=== PATIENT | male | born 1955 | race Caucasian/White ===

== ENCOUNTER 2021-08-15 20:18 | Inpatient (IN) | payer MEDICAID, MEDICARE ==
[~2021-08-15] VITALS: Ht 177.8 cm; Wt 52.2 kg
[2021-08-15] MEDS ORDERED: CEFTRIAXONE 1GM BAG (ER ONLY) 50 ML IV ONE ×2 (21:00→21:46)
[2021-08-15] MEDS ORDERED: IV NS 0.9% 1,000 ML BAG IV ONE (21:00)
[2021-08-15 21:48] LABS: COLOR,URINE AMBER (YELLOW)
[2021-08-15 21:49] LABS: PROTEIN,URINE 2+ mg/dl (NEGATIVE)
[2021-08-15 21:50] LABS: BILIRUBIN,URINE NEGATIVE (NEGATIVE); UGLUCOSE NEGATIVE (NEGATIVE)
[2021-08-15 21:51] LABS: LEUKOCYTE ESTERASE ,URINE 3+ (NEGATIVE); NITRITE, URINE NEGATIVE (NEGATIVE)
[2021-08-15 21:52] LABS: BACTERIA,URINE 2+ /HPF (None Seen); WBC,URINE 21-50 /HPF (0-3)
[2021-08-15 21:53] LABS: SQUAMOUS EPITHELIAL CELL,UR Few /HPF (None Seen)
[2021-08-15 22:45] LABS: BASOPHILS % (AUTO) 0.2 % (0.0-2.0); EOSINOPHILS % (AUTO) 7.8 % (0.0-6.0); HEMATOCRIT 29 % (39-51); HEMOGLOBIN 9.7 g/dL (13.5-17.5); LYMPHOCYTES # (AUTO) 1.5 K/uL (0.8-4.8); LYMPHOCYTES % (AUTO) 7.2 % (20.0-44.0); MEAN CORPUSCULAR HGB CONC 34 g/dl (31.0-36.0); MEAN CORPUSCULAR VOLUME 96 fL (80-96); MONOCYTES # (AUTO) 1.1 K/uL (0.1-1.30); MONOCYTES % (AUTO) 5.5 % (2.0-12.0); NEUTROPHILS # (AUTO) 16.1 K/uL (1.8-8.9); NEUTROPHILS % (AUTO) 79.3 % (43.0-81.0); PLATELET COUNT (AUTO) 120 K/uL (150-450); RED BLOOD CELL COUNT(AUTO) 3.02 MIL/uL (4.5-6.0); WHITE BLOOD COUNT (AUTO) 20.3 K/uL (4.3-11.0)
[2021-08-15] MEDS ORDERED: ASCO500C18 GT (22:51)
[2021-08-15] MEDS ORDERED: CRAN3875 GT (22:51)
[2021-08-15] MEDS ORDERED: FLUT16SP MT (22:51)
[2021-08-15] MEDS ORDERED: DOCU100T2 GT (22:51)
[2021-08-15] MEDS ORDERED: FOLI5VIA2 GT (22:51)
[2021-08-15] MEDS ORDERED: CALC0.253 GT (22:51)
[2021-08-15] MEDS ORDERED: MULT-447 GT (22:51)
[2021-08-15] MEDS ORDERED: LEVE500T9 GT (22:51)
[2021-08-15] MEDS ORDERED: ESCI20TA GT (22:51)
[2021-08-15] MEDS ORDERED: FLUN25SP BNOSTRILS (22:51)
[2021-08-15] MEDS ORDERED: TRAZ-182 GT (22:51)
[2021-08-15] MEDS ORDERED: FERR325T23 GT (22:51)
[2021-08-15] MEDS ORDERED: AMLO-213 GT (22:51)
[2021-08-15] MEDS ORDERED: ATOR40TA GT (22:51)
[2021-08-15] MEDS ORDERED: ASPI-1169 GT (22:51)
[2021-08-15 23:04] LABS: POTASSIUM 4.5 mmol/L (3.5-5.1)
[2021-08-15 23:05] LABS: ALBUMIN 2.1 g/dL (3.4-5.0); BILIRUBIN,DIRECT 0.2 mg/dL (0.0-0.2); BILIRUBIN,TOTAL 0.3 mg/dL (0.2-1.0); CALCIUM, SERUM 9.4 mg/dL (8.5-10.1); CREATININE 1.3 mg/dL (0.6-1.3)
[2021-08-15 23:06] LABS: TOTAL PROTEIN, SERUM 7.3 g/dL (6.4-8.2)
[2021-08-16] MEDS ORDERED: HYDROCODONE/APAP 5/325MG TABLET PO PRN (00:30)
[2021-08-16] MEDS ORDERED: MAG HYDROX/AL HYDROX/SIMETH 30 ML UDC PO PRN (00:30)
[2021-08-16] MEDS ORDERED: ACETAMINOPHEN 325 MG TABLET PO PRN (00:30)
[2021-08-16] MEDS ORDERED: Z GUARD REMEDY 4 OZ OINT TP PRN (00:30)
[2021-08-16] MEDS ORDERED: MAGNESIUM HYDROXIDE 30 ML UDC PO PRN (00:30)
[2021-08-16] MEDS ORDERED: ONDANSETRON HCL/PF 4 MG/2 ML VIAL IVP PRN (00:30)
[2021-08-16 00:45] VITALS: BP 116/72
[2021-08-16] MEDS: IV NS 0.9% 1,000 ML IV PRN ×2 (00:57→14:08)
[2021-08-16] MEDS: ENOXAPARIN SODIUM 40 MG/0.4 ML DISP.SYRIN SQ SCH ×2 (01:00→21:00)
[2021-08-16 04:00] VITALS: BP 112/65
[2021-08-16 08:00] VITALS: BP 93/60
[2021-08-16] MEDS: FERROUS SULFATE (325 MG) 325 MG/TAB TABLET GT SCH (08:32)
[2021-08-16] MEDS: ESCITALOPRAM OXALATE (10 MG) 10 MG TABLET PO SCH (08:33)
[2021-08-16] MEDS: PANTOPRAZOLE 40 MG TABLET.DR PO SCH (08:34)
[2021-08-16] MEDS: LEVETIRACETAM (250 MG) 250 MG TABLET PO SCH ×2 (08:34→20:04)
[2021-08-16] MEDS: CALCITRIOL 0.25 MCG CAPSULE GT SCH (08:34)
[2021-08-16] MEDS: ASPIRIN 81 MG TAB.CHEW GT SCH (08:34)
[2021-08-16] MEDS ORDERED: CEFTRIAXONE 1 G in IV D5W 50 ML IV SCH ×2 (09:00→21:00)
[2021-08-16 10:57] LABS: BAND % (MANUAL) 9 % (0.0-5.0); LYMPHOCYTES % (MANUAL) 8 % (16-48); NEUTROPHILS % (MANUAL) 75 (42-76); REACTIVE LYMPHOCYTES 8 % (0-0)
[2021-08-16 12:00] VITALS: BP 102/57
[2021-08-16 16:00] VITALS: BP 109/59
[2021-08-16 20:00] VITALS: BP 127/58
[2021-08-16] MEDS: CEFTRIAXONE 1 G in IV D5W 50 ML IV SCH (20:04)
[2021-08-16] MEDS: ATORVASTATIN 40 MG TABLET GT SCH (21:51)
[2021-08-17] VITALS: BP 117/62
[2021-08-17] MEDS: IV NS 0.9% 1,000 ML IV PRN ×2 (03:00→18:35)
[2021-08-17 04:00] VITALS: BP 115/62
[2021-08-17 07:43] LABS: BASOPHILS # (AUTO) 0.1 K/uL (0.0-0.2); BASOPHILS % (AUTO) 0.3 % (0.0-2.0); EOSINOPHILS % (AUTO) 0.8 % (0.0-6.0); HEMATOCRIT 32 % (39-51); HEMOGLOBIN 10.7 g/dL (13.5-17.5); LYMPHOCYTES # (AUTO) 1.6 K/uL (0.8-4.8); LYMPHOCYTES % (AUTO) 8.2 % (20.0-44.0); MEAN CORPUSCULAR HGB CONC 34 g/dl (31.0-36.0); MEAN CORPUSCULAR VOLUME 96 fL (80-96); MONOCYTES # (AUTO) 1.2 K/uL (0.1-1.30); MONOCYTES % (AUTO) 6.2 % (2.0-12.0); NEUTROPHILS % (AUTO) 84.5 % (43.0-81.0); PLATELET COUNT (AUTO) 144 K/uL (150-450); RED BLOOD CELL COUNT(AUTO) 3.33 MIL/uL (4.5-6.0)
[2021-08-17 08:00] VITALS: BP 113/67
[2021-08-17] MEDS: CALCITRIOL 0.25 MCG CAPSULE GT SCH (08:05)
[2021-08-17] MEDS: PANTOPRAZOLE 40 MG TABLET.DR PO SCH (08:05)
[2021-08-17] MEDS: ASPIRIN 81 MG TAB.CHEW GT SCH (08:05)
[2021-08-17] MEDS: ESCITALOPRAM OXALATE (10 MG) 10 MG TABLET PO SCH (08:06)
[2021-08-17] MEDS: LEVETIRACETAM (250 MG) 250 MG TABLET PO SCH ×2 (08:06→21:00)
[2021-08-17] MEDS: FERROUS SULFATE (325 MG) 325 MG/TAB TABLET GT SCH (08:06)
[2021-08-17 08:27] LABS: CALCIUM, SERUM 9.3 mg/dL (8.5-10.1); CREATININE 0.7 mg/dL (0.6-1.3); MAGNESIUM 1.9 mg/dL (1.8-2.4); PHOSPHORUS 3.8 mg/dL (2.5-4.9); POTASSIUM 3.8 mmol/L (3.5-5.1)
[2021-08-17 11:30] LABS: BAND % (MANUAL) 24 % (0.0-5.0); NEUTROPHILS % (MANUAL) 55 (42-76)
[2021-08-17 11:31] LABS: EOSINOPHILS % (MANUAL) 1 % (0-4); LYMPHOCYTES % (MANUAL) 14 % (16-48); MONOCYTES % (MANUAL) 6 % (0-11.0)
[2021-08-17 12:00] VITALS: BP 118/66
[2021-08-17 16:00] VITALS: BP 128/71
[2021-08-17] MEDS: GLUCERNA NG PRN (17:50)
[2021-08-17 20:00] VITALS: BP 133/71
[2021-08-17] MEDS: ATORVASTATIN 40 MG TABLET GT SCH (21:00)
[2021-08-17] MEDS: ENOXAPARIN SODIUM 40 MG/0.4 ML DISP.SYRIN SQ SCH (21:00)
[2021-08-17] MEDS: CEFTRIAXONE 1 G in IV D5W 50 ML IV SCH (21:00)
[2021-08-18] VITALS: BP 121/69
[2021-08-18 04:00] VITALS: BP 122/66
[2021-08-18] MEDS: IV NS 0.9% 1,000 ML IV PRN (05:22)
[2021-08-18 06:32] LABS: BASOPHILS # (AUTO) 0.1 K/uL (0.0-0.2); BASOPHILS % (AUTO) 0.4 % (0.0-2.0); EOSINOPHILS % (AUTO) 0.6 % (0.0-6.0); HEMATOCRIT 34 % (39-51); HEMOGLOBIN 11.4 g/dL (13.5-17.5); LYMPHOCYTES # (AUTO) 1.8 K/uL (0.8-4.8); LYMPHOCYTES % (AUTO) 13.4 % (20.0-44.0); MEAN CORPUSCULAR HGB CONC 33 g/dl (31.0-36.0); MEAN CORPUSCULAR VOLUME 96 fL (80-96); MONOCYTES % (AUTO) 7.2 % (2.0-12.0); NEUTROPHILS # (AUTO) 10.6 K/uL (1.8-8.9); NEUTROPHILS % (AUTO) 78.4 % (43.0-81.0); PLATELET COUNT (AUTO) 151 K/uL (150-450); RED BLOOD CELL COUNT(AUTO) 3.57 MIL/uL (4.5-6.0); WHITE BLOOD COUNT (AUTO) 13.5 K/uL (4.3-11.0)
[2021-08-18 07:54] LABS: CALCIUM, SERUM 9.4 mg/dL (8.5-10.1); CREATININE 0.6 mg/dL (0.6-1.3); MAGNESIUM 1.7 mg/dL (1.8-2.4); POTASSIUM 3.6 mmol/L (3.5-5.1)
[2021-08-18 08:00] VITALS: BP 116/57
[2021-08-18] MEDS: PANTOPRAZOLE 40 MG TABLET.DR PO SCH (09:09)
[2021-08-18] MEDS: FERROUS SULFATE (325 MG) 325 MG/TAB TABLET GT SCH (09:13)
[2021-08-18] MEDS: LEVETIRACETAM (250 MG) 250 MG TABLET PO SCH ×2 (09:13→21:03)
[2021-08-18] MEDS: ASPIRIN 81 MG TAB.CHEW GT SCH (09:13)
[2021-08-18] MEDS: ESCITALOPRAM OXALATE (10 MG) 10 MG TABLET PO SCH (09:13)
[2021-08-18] MEDS: CALCITRIOL 0.25 MCG CAPSULE GT SCH (09:13)
[2021-08-18] MEDS: Magnesium 1GM/D5W 100ML PREMIX 100 ML IV SCH ×2 (12:09→13:37)
[2021-08-18 12:30] VITALS: BP 105/70
[2021-08-18] MEDS: LEVOFLOXACIN 750 MG /D5W 150ML 750 MG in PREMIX 1 EA IV SCH (13:37)
[2021-08-18 16:00] VITALS: BP 124/89
[2021-08-18 20:00] VITALS: BP 133/67
[2021-08-18] MEDS: ATORVASTATIN 40 MG TABLET GT SCH (21:03)
[2021-08-18] MEDS: ENOXAPARIN SODIUM 40 MG/0.4 ML DISP.SYRIN SQ SCH (21:05)
[2021-08-18] MEDS: GLUCERNA NG PRN (21:07)
[2021-08-19] VITALS (7 sets, daily range): BP systolic 121–129; BP diastolic 56–70
[2021-08-19] MEDS: PANTOPRAZOLE 40 MG TABLET.DR PO SCH (07:27)
[2021-08-19 07:50] LABS: BASOPHILS % (AUTO) 0.2 % (0.0-2.0); EOSINOPHILS % (AUTO) 0.4 % (0.0-6.0); HEMATOCRIT 34 % (39-51); HEMOGLOBIN 11.2 g/dL (13.5-17.5); LYMPHOCYTES % (AUTO) 16.5 % (20.0-44.0); MEAN CORPUSCULAR HGB CONC 33 g/dl (31.0-36.0); MEAN CORPUSCULAR VOLUME 95 fL (80-96); MONOCYTES # (AUTO) 0.9 K/uL (0.1-1.30); MONOCYTES % (AUTO) 7.2 % (2.0-12.0); NEUTROPHILS # (AUTO) 9.1 K/uL (1.8-8.9); NEUTROPHILS % (AUTO) 75.7 % (43.0-81.0); PLATELET COUNT (AUTO) 192 K/uL (150-450); RED BLOOD CELL COUNT(AUTO) 3.53 MIL/uL (4.5-6.0)
[2021-08-19 08:07] LABS: CALCIUM, SERUM 9.5 mg/dL (8.5-10.1); CREATININE 0.7 mg/dL (0.6-1.3); MAGNESIUM 1.8 mg/dL (1.8-2.4); POTASSIUM 3.7 mmol/L (3.5-5.1)
[2021-08-19] MEDS: FERROUS SULFATE (325 MG) 325 MG/TAB TABLET GT SCH (08:20)
[2021-08-19] MEDS: ASPIRIN 81 MG TAB.CHEW GT SCH (08:21)
[2021-08-19] MEDS: CALCITRIOL 0.25 MCG CAPSULE GT SCH (08:21)
[2021-08-19] MEDS: LEVETIRACETAM (250 MG) 250 MG TABLET PO SCH ×2 (08:21→21:20)
[2021-08-19] MEDS: ESCITALOPRAM OXALATE (10 MG) 10 MG TABLET PO SCH (08:21)
[2021-08-19] MEDS: LEVOFLOXACIN 750 MG /D5W 150ML 750 MG in PREMIX 1 EA IV SCH (12:10)
[2021-08-19 15:06] LABS: BAND % (MANUAL) 2 % (0.0-5.0); LYMPHOCYTES % (MANUAL) 21 % (16-48); MONOCYTES % (MANUAL) 7 % (0-11.0); NEUTROPHILS % (MANUAL) 70 (42-76)
[2021-08-19] MEDS: ENOXAPARIN SODIUM 40 MG/0.4 ML DISP.SYRIN SQ SCH (21:20)
[2021-08-19] MEDS: ATORVASTATIN 40 MG TABLET GT SCH (21:20)
[2021-08-20] VITALS: BP 131/56
[2021-08-20] MEDS: GLUCERNA NG PRN (02:32)
[2021-08-20 04:00] VITALS: BP 113/59
[2021-08-20 07:29] LABS: BASOPHILS % (AUTO) 0.3 % (0.0-2.0); EOSINOPHILS % (AUTO) 0.7 % (0.0-6.0); HEMATOCRIT 32 % (39-51); HEMOGLOBIN 10.9 g/dL (13.5-17.5); LYMPHOCYTES # (AUTO) 2.6 K/uL (0.8-4.8); MEAN CORPUSCULAR HGB CONC 34 g/dl (31.0-36.0); MEAN CORPUSCULAR VOLUME 96 fL (80-96); MONOCYTES # (AUTO) 0.9 K/uL (0.1-1.30); MONOCYTES % (AUTO) 8.7 % (2.0-12.0); NEUTROPHILS # (AUTO) 6.2 K/uL (1.8-8.9); NEUTROPHILS % (AUTO) 63.3 % (43.0-81.0); PLATELET COUNT (AUTO) 209 K/uL (150-450); RED BLOOD CELL COUNT(AUTO) 3.35 MIL/uL (4.5-6.0); WHITE BLOOD COUNT (AUTO) 9.8 K/uL (4.3-11.0)
[2021-08-20 07:41] LABS: CALCIUM, SERUM 8.9 mg/dL (8.5-10.1); CREATININE 0.6 mg/dL (0.6-1.3); MAGNESIUM 1.7 mg/dL (1.8-2.4); POTASSIUM 4.1 mmol/L (3.5-5.1)
[2021-08-20 08:00] VITALS: BP 115/65
[2021-08-20] MEDS: LEVETIRACETAM (250 MG) 250 MG TABLET PO SCH (08:04)
[2021-08-20] MEDS: ASPIRIN 81 MG TAB.CHEW GT SCH (08:04)
[2021-08-20] MEDS: FERROUS SULFATE (325 MG) 325 MG/TAB TABLET GT SCH (08:04)
[2021-08-20] MEDS: ESCITALOPRAM OXALATE (10 MG) 10 MG TABLET PO SCH (08:04)
[2021-08-20] MEDS: PANTOPRAZOLE 40 MG TABLET.DR PO SCH (08:04)
[2021-08-20] MEDS: CALCITRIOL 0.25 MCG CAPSULE GT SCH (08:04)
[2021-08-20] MEDS ORDERED: ASPIRIN 81 MG TAB.CHEW NG SCH (10:31)
[2021-08-20] MEDS ORDERED: MAGNESIUM HYDROXIDE 30 ML UDC NG PRN (10:33)
[2021-08-20] MEDS ORDERED: MAG HYDROX/AL HYDROX/SIMETH 30 ML UDC NG PRN (10:33)
[2021-08-20] MEDS ORDERED: HYDROCODONE/APAP 5/325MG TABLET NG PRN (10:34)
[2021-08-20] MEDS ORDERED: CALCITRIOL 0.25 MCG CAPSULE NG SCH (10:34)
[2021-08-20] MEDS ORDERED: ACETAMINOPHEN 650 MG/20.3 ML UDC NG PRN ×2 (11:00)
[2021-08-20 12:00] VITALS: BP 103/54
[2021-08-20] MEDS: LEVOFLOXACIN 750 MG /D5W 150ML 750 MG in PREMIX 1 EA IV SCH (12:14)
[2021-08-20] MEDS: LEVOFLOXACIN (250MG) 250 MG TABLET NG SCH (13:00)
[2021-08-20 16:00] VITALS: BP 111/62
[2021-08-20] MEDS: Magnesium 1GM/D5W 100ML PREMIX 100 ML IV SCH ×2 (16:13→16:58)
[2021-08-20 20:00] VITALS: BP 122/71
[2021-08-20] MEDS: ENOXAPARIN SODIUM 40 MG/0.4 ML DISP.SYRIN SQ SCH (21:49)
[2021-08-20] MEDS: LEVETIRACETAM SOL (5 ML) 100 MG/ML UDC NG SCH (22:03)
[2021-08-20] MEDS: ATORVASTATIN 40 MG TABLET NG SCH (22:04)
[2021-08-21] VITALS: BP 111/56
[2021-08-21] MEDS: GLUCERNA NG PRN (02:13)
[2021-08-21 04:00] VITALS: BP 128/76
[2021-08-21 08:00] VITALS: BP 101/56
[2021-08-21] MEDS: CALCITRIOL 0.25 MCG CAPSULE NG SCH (08:09)
[2021-08-21] MEDS: FERROUS SULFATE (325 MG) 325 MG/TAB TABLET NG SCH (08:10)
[2021-08-21] MEDS: ASPIRIN 81 MG TAB.CHEW NG SCH (08:13)
[2021-08-21] MEDS: LEVETIRACETAM SOL (5 ML) 100 MG/ML UDC NG SCH ×2 (08:13→21:32)
[2021-08-21] MEDS: PANTOPRAZOLE 40 MG/PACK PACK NG SCH (08:13)
[2021-08-21] MEDS: ESCITALOPRAM OXALATE (10 MG) 10 MG TABLET NG SCH (08:14)
[2021-08-21 12:00] VITALS: BP 93/46
[2021-08-21] MEDS: LEVOFLOXACIN (250MG) 250 MG TABLET NG SCH (12:41)
[2021-08-21 12:54] LABS: BASOPHILS % (AUTO) 0.4 % (0.0-2.0); EOSINOPHILS % (AUTO) 0.8 % (0.0-6.0); HEMATOCRIT 31 % (39-51); HEMOGLOBIN 10.5 g/dL (13.5-17.5); LYMPHOCYTES # (AUTO) 1.9 K/uL (0.8-4.8); MEAN CORPUSCULAR HGB CONC 34 g/dl (31.0-36.0); MEAN CORPUSCULAR VOLUME 96 fL (80-96); MONOCYTES # (AUTO) 0.6 K/uL (0.1-1.30); MONOCYTES % (AUTO) 8.4 % (2.0-12.0); NEUTROPHILS # (AUTO) 5.1 K/uL (1.8-8.9); NEUTROPHILS % (AUTO) 65.4 % (43.0-81.0); PLATELET COUNT (AUTO) 234 K/uL (150-450); RED BLOOD CELL COUNT(AUTO) 3.25 MIL/uL (4.5-6.0); WHITE BLOOD COUNT (AUTO) 7.8 K/uL (4.3-11.0)
[2021-08-21 13:14] LABS: CALCIUM, SERUM 8.9 mg/dL (8.5-10.1); CREATININE 0.6 mg/dL (0.6-1.3); MAGNESIUM 1.9 mg/dL (1.8-2.4); PHOSPHORUS 3.5 mg/dL (2.5-4.9); POTASSIUM 4.5 mmol/L (3.5-5.1)
[2021-08-21 16:00] VITALS: BP 139/75
[2021-08-21 20:00] VITALS: BP 153/87
[2021-08-21] MEDS: ENOXAPARIN SODIUM 40 MG/0.4 ML DISP.SYRIN SQ SCH (21:31)
[2021-08-21] MEDS: ATORVASTATIN 40 MG TABLET NG SCH (21:32)
[2021-08-22] VITALS: BP 141/68
[2021-08-22] MEDS: GLUCERNA NG PRN (02:11)
[2021-08-22 04:00] VITALS: BP 130/58
[2021-08-22 08:00] VITALS: BP 112/63
[2021-08-22] MEDS: PANTOPRAZOLE 40 MG/PACK PACK NG SCH (09:16)
[2021-08-22] MEDS: ASPIRIN 81 MG TAB.CHEW NG SCH (09:16)
[2021-08-22] MEDS: FERROUS SULFATE (325 MG) 325 MG/TAB TABLET NG SCH (09:17)
[2021-08-22] MEDS: LEVETIRACETAM SOL (5 ML) 100 MG/ML UDC NG SCH (09:17)
[2021-08-22] MEDS: CALCITRIOL 0.25 MCG CAPSULE NG SCH (09:18)
[2021-08-22] MEDS: ESCITALOPRAM OXALATE (10 MG) 10 MG TABLET NG SCH (09:18)
[2021-08-22 12:00] VITALS: BP 114/59
[2021-08-22] MEDS ORDERED: LEVO750T46 GT (12:16)
[2021-08-22] MEDS: LEVOFLOXACIN (250MG) 250 MG TABLET NG SCH (13:06)
== END 2021-08-22 18:37 | DRG 720 ==
LOC: EDBD 20:25 → ER 20:25 → TELE1 08-16 00:07
PROVIDERS: ADMIT Nurse Practitioner Family; ATTEND Nurse Practitioner Acute Care
PROC: 05H533Z Insertion of Infusion Device into Right Subclavian Vein, Percutaneous Approach (ICD-10-PCS; principal; 2021-08-21)
PROC: B546ZZA Ultrasonography of Right Subclavian Vein, Guidance (ICD-10-PCS; 2021-08-21)
DX: A41.59 Other Gram-negative sepsis (principal); N17.0 Acute kidney failure with tubular necrosis; G93.41 Metabolic encephalopathy; G82.50 Quadriplegia, unspecified; J15.0 Pneumonia due to Klebsiella pneumoniae; E44.0 Moderate protein-calorie malnutrition; D68.59 Other primary thrombophilia; E87.3 Alkalosis; E87.1 Hypo-osmolality and hyponatremia; E88.09 Other disorders of plasma-protein metabolism, not elsewhere classified; E11.9 Type 2 diabetes mellitus without complications; D64.9 Anemia, unspecified; E78.5 Hyperlipidemia, unspecified; N39.0 Urinary tract infection, site not specified; B96.1 Klebsiella pneumoniae [K. pneumoniae] as the cause of diseases classified elsewhere; F03.90 Unspecified dementia, unspecified severity, without behavioral disturbance, psychotic disturbance, mood disturbance, and anxiety; E86.0 Dehydration; I10 Essential (primary) hypertension; G40.909 Epilepsy, unspecified, not intractable, without status epilepticus; E86.1 Hypovolemia; F32.A Depression, unspecified; R13.10 Dysphagia, unspecified; Z87.820 Personal history of traumatic brain injury; Z93.1 Gastrostomy status; Z20.822 Contact with and (suspected) exposure to COVID-19; Z16.12 Extended spectrum beta lactamase (ESBL) resistance; B96.5 Pseudomonas (aeruginosa) (mallei) (pseudomallei) as the cause of diseases classified elsewhere; Z68.1 Body mass index [BMI] 19.9 or less, adult; Z74.09 Other reduced mobility; F20.9 Schizophrenia, unspecified
CPT/HCPCS: 36415; 71045-TC; 80048-TC; 80076-TC; 81001; 83605-TC; 83735-TC; 84100-TC; 85025-TC; 87040-TC; 87086-TC; 87186-TC; A4216; A4217; A6403; C9803; G0378; J0696; J1650; J1953; J1956; J3475; J7030; J7050; J7060; U0003

== ENCOUNTER 2022-02-20 10:50 | Emergency (ER) | payer MEDICARE, OTHER ==
[~2022-02-20] VITALS: Ht 165.1 cm; Wt 59.4 kg
[~2022-02-20 10:50] MED LIST: AMLO-213 GT; ASCO500C18 GT; ASPI-1169 GT; ATOR40TA GT; CALC0.253 GT; CRAN3875 GT; DOCU100T2 GT; ESCI20TA GT; FERR325T23 GT; FLUN25SP; FLUT16SP MT; FOLI5VIA2 GT; LEVE500T9 GT; LEVO750T46 GT; MULT-447 GT; TRAZ-182 GT
--- NOTE | 2022-02-20 10:50 | NUR ---
ILAN PATEL FROM CARE FACILITY FOR COUGH/CHEST CONGESTION. PLACED ON BED, RESPONDING TO VERBAL STIMULI BY OPENING EYES- SLURED SPEECH, BREATHING EVEN AND UNLABORED SATURATING AT 97%RA.
--- NOTE | 2022-02-20 11:00 | NUR ---
AT BED SIDE
--- NOTE | 2022-02-20 11:10 | NUR ---
SWAB FOR COVID19 SENT TO LAB
[2022-02-20] MEDS ORDERED: MODAFINIL GT (11:13)
[2022-02-20] MEDS ORDERED: FLUT12AE5 IH (11:13)
[2022-02-20] MEDS ORDERED: NUT.237L30 GT (11:13)
[2022-02-20] MEDS ORDERED: FOLI0.4T6 GT (11:13)
--- NOTE | 2022-02-20 11:18 | NUR ---
JAVA SOFTWARE ARCHITECT AT BED SIDE
[2022-02-20 11:41] LABS: BASOPHILS % (AUTO) 0.3 % (0.0-2.0); EOSINOPHILS % (AUTO) 0.3 % (0.0-6.0); HEMATOCRIT 38 % (39-51); HEMOGLOBIN 12.8 g/dL (13.5-17.5); LYMPHOCYTES # (AUTO) 1.3 K/uL (0.8-4.8); LYMPHOCYTES % (AUTO) 29.5 % (20.0-44.0); MEAN CORPUSCULAR HGB CONC 34 g/dl (31.0-36.0); MEAN CORPUSCULAR VOLUME 94 fL (80-96); MONOCYTES # (AUTO) 0.5 K/uL (0.1-1.30); NEUTROPHILS # (AUTO) 2.6 K/uL (1.8-8.9); NEUTROPHILS % (AUTO) 58.9 % (43.0-81.0); PLATELET COUNT (AUTO) 154 K/uL (150-450); RED BLOOD CELL COUNT(AUTO) 4.06 MIL/uL (4.5-6.0); WHITE BLOOD COUNT (AUTO) 4.4 K/uL (4.3-11.0)
[2022-02-20 11:52] LABS: CALCIUM, SERUM 8.8 mg/dL (8.5-10.1); CREATININE 0.9 mg/dL (0.6-1.3); POTASSIUM 3.9 mmol/L (3.5-5.1)
[2022-02-20] MEDS ORDERED: GUAI1TBM19 PO (12:10)
--- NOTE | 2022-02-20 12:29 | NUR ---
Suzanna caldwell in [facility] - 02/20/22 at 1230 by PRASHANTH X-RAY TECH AT [facility] SIDE
--- NOTE | 2022-02-20 12:49 | NUR ---
COVID POSITIVE RESULT RELAYED BY ELECTRONIC PUBLISHER, RAGHAV ERVIN AWARE
--- NOTE | 2022-02-20 12:59 | NUR ---
CALLED [facility] [phone] [facility] WILL CALL US BACK TO INFORM IF THEY CAN TAKE PATIENT BACK.
--- NOTE | 2022-02-20 13:12 | NUR ---
ANGEL LUIS FROM [facility] [phone] CALLED NO ISOLATION BEDS AT THIS TIME. [facility] WILL CALL US BACK TO INFORM IF THEY CAN TAKE PATIENT BACK.
--- NOTE | 2022-02-20 13:49 | NUR ---
[facility] CALLED COIN MACHINE COLLECTOR SUPERVISOR PAGED.
--- NOTE | 2022-02-20 14:11 | NUR ---
[facility] CALLED BACK THEY ARE ABLE TO GET PATIENT.
--- NOTE | 2022-02-20 14:14 | NUR ---
[facility] CALLED FOR TRANSPORT ETA 60 MINS PER JUANCARLOS.
--- NOTE | 2022-02-20 14:39 | NUR ---
REPORT GIVEN TO LONI- STENOTYPE MACHINE OPERATOR AT [facility] [phone]
--- NOTE | 2022-02-20 15:43 | NUR ---
PICKED UP BY [facility] UNIT [address] IN STABLE CONDITION. ALL BELONGINGS BROUGHT WITH PATIENT.
[2022-02-20 18:17] VITALS: BP 120/60
== END 2022-02-20 15:43 ==
LOC: ER 10:52
DX: U07.1 COVID-19 (principal); F03.90 Unspecified dementia, unspecified severity, without behavioral disturbance, psychotic disturbance, mood disturbance, and anxiety; G82.50 Quadriplegia, unspecified; S06.9X0S Unspecified intracranial injury without loss of consciousness, sequela; X58.XXXS Exposure to other specified factors, sequela; I10 Essential (primary) hypertension; E11.9 Type 2 diabetes mellitus without complications; R13.10 Dysphagia, unspecified; Z93.1 Gastrostomy status; Z79.82 Long term (current) use of aspirin; Z79.899 Other long term (current) drug therapy; J06.9 Acute upper respiratory infection, unspecified
CPT/HCPCS: 36415; 71045-TC; 80048-TC; 85025-TC; C9803

== ENCOUNTER 2022-11-02 13:23 | Inpatient (IN) | payer MEDICARE, MEDICAID ==
[~2022-11-02] VITALS: Ht 162.6 cm; Wt 66.7 kg
[~2022-11-02 13:23] MED LIST changes: +FLUT12AE5 IH; -FLUT16SP MT; +FOLI0.4T6 GT; -FOLI5VIA2 GT; +GUAI1TBM19 PO; -LEVO750T46 GT; +MODAFINIL GT; +NUT.237L30 GT
--- NOTE | 2022-11-02 13:39 | NUR ---
Patient AOx3, able to express his concerns. Hard of hearing, patient stares he walks without the need of a walker. States he does not know happend with G-TUbe. WIll continue to monitor without shift and provide care as needed. Explained plan of care, all safety precautions taken.
[2022-11-02] MEDS ORDERED: INSU100V3 SQ (14:31)
[2022-11-02] MEDS ORDERED: SODI1TAB66 GT (14:31)
[2022-11-02] MEDS ORDERED: BISA10SU11 RC (14:31)
[2022-11-02] MEDS ORDERED: ACET-2605 GT (14:31)
[2022-11-02] MEDS ORDERED: ACET-868 PO (14:31)
[2022-11-02] MEDS ORDERED: NA P133E RC (14:31)
[2022-11-02] MEDS ORDERED: MAGN400O6 GT (14:31)
[2022-11-02 14:59] LABS: BASOPHILS % (AUTO) 0.6 % (0.0-2.0); EOSINOPHILS % (AUTO) 1.3 % (0.0-6.0); HEMATOCRIT 42 % (39-51); HEMOGLOBIN 14.1 g/dL (13.5-17.5); LYMPHOCYTES # (AUTO) 2.5 K/uL (0.8-4.8); LYMPHOCYTES % (AUTO) 34.7 % (20.0-44.0); MEAN CORPUSCULAR HGB CONC 34 g/dl (31.0-36.0); MEAN CORPUSCULAR VOLUME 95 fL (80-96); MONOCYTES # (AUTO) 0.5 K/uL (0.1-1.30); MONOCYTES % (AUTO) 7.4 % (2.0-12.0); PLATELET COUNT (AUTO) 223 K/uL (150-450); RED BLOOD CELL COUNT(AUTO) 4.44 MIL/uL (4.5-6.0); WHITE BLOOD COUNT (AUTO) 7.1 K/uL (4.3-11.0)
--- NOTE | 2022-11-02 15:05 | NUR ---
COVID SWAB collected
--- NOTE | 2022-11-02 15:08 | NUR ---
MRSA collected, sent to lab
[2022-11-02 15:10] LABS: CALCIUM, SERUM 9.4 mg/dL (8.5-10.1); CREATININE 0.9 mg/dL (0.6-1.3); POTASSIUM 3.8 mmol/L (3.5-5.1)
[2022-11-02 15:17] LABS: ALBUMIN 2.6 g/dL (3.4-5.0); BILIRUBIN,DIRECT 0.1 mg/dL (0.0-0.2); BILIRUBIN,TOTAL 0.3 mg/dL (0.2-1.0); TOTAL PROTEIN, SERUM 7.7 g/dL (6.4-8.2)
--- NOTE | 2022-11-02 15:28 | NUR ---
Made patient aware of plan of care, berbalized agreement.
--- NOTE | 2022-11-02 16:53 | NUR ---
NOTIFIED NURSING SUP FOR MED SURG BED
--- NOTE | 2022-11-02 17:25 | NUR ---
Report givent to SILVER Lacy, patient made aware of plan and verbalized agreeement.
--- NOTE | 2022-11-02 17:28 | NUR ---
Report given to Bambi SHEPPARD, patient cleared to go to room 325
[2022-11-02] MEDS ORDERED: ACETAMINOPHEN 650 MG/SUPP.RECT RC PRN (17:30)
[2022-11-02] MEDS ORDERED: Z GUARD REMEDY 4 OZ OINT TP PRN (17:30)
[2022-11-02] MEDS ORDERED: LORAZEPAM INJ 2 MG/ML VIAL IV PRN (17:30)
--- NOTE | 2022-11-02 17:47 | NUR ---
Per Jorge- Nursing Sup. order is placed for midline, patient cleared to move up.
--- NOTE | 2022-11-02 18:00 | NUR ---
ADMITTING RN NOTES: ADMITTED A 67YO MALE PATIENT FROM EMERGENCY ROOM. RECEIVED REPORT FROM SILVER SHABAZZ. PT A/O X2-3 WITH FORGETFULNESS. NO SOB OR CARDIAC DISTRESS NOTED. PT ON ROOM AIR AND TOLERATING WELL. NO IV ACCESS WAITING FOR MIDLINE INSERTION. BODY ASSESSMENT: NOTED WITH CLOSED PEG TUBE STOMA SITE, BLE DRY SCABS MAINTAINED NPO FOR PEG INSERTION. UNABLE TO GATHER DATA AND INFORMATION FROM THE PATIENT. [facility] BUT PER [facility]ESHA VACCINATIONS AND HX AND CHART IS UNABLE TO ACCESS. CALLED [facility] GOT FEW INFORMATION, GOT CONSENT FOR G TUBE REPLACEMENT. SAFETY MEASURES INITIATED: BED LOCKED AND IN LOWEST POSITION, SIDE RAILS UP X3. PADDED SIDE RAILS PER SEIZURE PRECAUTION. CALL LIGHT IN EASY REACH FOR HELP.
--- NOTE | 2022-11-02 19:00 | NUR ---
RN NOTES: INSERTED MIDLINE GAUGE 20 PATENT AND INTACT AND FLUSHING WELL.
[2022-11-02] MEDS: LEVETIRACETAM (500MG) 1,000 MG in IV NS 0.9% 100 ML IV SCH (19:20)
--- NOTE | 2022-11-02 19:40 | NUR ---
MS RN OPENING NOTE RECEIVED PT IN BED, SLEEPING, BUT EASY TO AROUSE. PT ALERT AND ORIENTED X 2-3, ABLE TO MAKE NEEDS KNOWN. NO SOB OR CARDIAC DISTRESS NOTED. ON ROOM AIR, AND TOLERATING RA WELL. IV ACCESS MIDLINE TO RIGHT UA GAUGE 20, PATENT, INTACT AND RUNNING NS AT 75ML/HR. SAFETY MEASURES MAINTAINED: BED LOCKED AND IN LOWEST POSITION, SIDE RAILS UP X 2 CALL LIGHT WITHIN REACH. WILL MONITOR PT ACCORDINGLY.
[2022-11-02 20:00] VITALS: BP 135/73
[2022-11-02] MEDS: HEPARIN SODIUM, PORCINE 5000 UNITS/1 ML VIAL SQ SCH (21:28)
[2022-11-02] MEDS: IV D5/0.45 NACL 1,000 ML IV PRN (21:55)
--- NOTE | 2022-11-03 05:05 | NUR ---
RESOURCE MANAGEMENT PLANNER ADMITTING NOTE ADMITTED A 76YO FEMALE PATIENT FROM EMERGENCY ROOM. RECEIVED REPORT FROM SILVER DIGGS. PT A/O X4. SOB NOTED WITH EXERTION. PT ON O2 2LPM VIA NC, AND TOLERATING WELL. IV ACCESS TO LEFT FA #20G, IV INTACT, AND PATENT. PT REFUSES BODY ASSESSMENT. PT HAS HOME MEDS IN A BAG. BUT SHE REFUSES FOR THE BAG TO BE VERIFIED, AND FOR MEDS TO BE TAKEN TO PHARMACY. PT STATES HER BOYFRIEND WILL TAKE THE MEDS HOME THIS MORNING. BELONGINGS CHECKED, AND BELONGING LIST SIGNED. SAFETY MEASURES INITIATED: BED LOCKED AND IN LOWEST POSITION, SIDE RAILS UP X2, HOB ELEVATED. CALL LIGHT IN EASY REACH FOR HELP. WILL ENDORSE PT TO AM SHIFT NURSE FOR YVES. Addendum: 11/03/22 at 0748 by DAVID RIVAS RN WRONG ENTRY. PLEASE DISREGARD NOTE.
[2022-11-03] MEDS: LEVETIRACETAM (500MG) 1,000 MG in IV NS 0.9% 100 ML IV SCH ×2 (05:17→18:09)
--- NOTE | 2022-11-03 06:50 | NUR ---
MS RN OPENING NOTE LEFT PT IN BED, SLEEPING, BUT EASY TO AROUSE. PT ALERT AND ORIENTED X 2-3, ABLE TO MAKE NEEDS KNOWN. NO SOB OR CARDIAC DISTRESS NOTED. ON ROOM AIR, AND TOLERATING RA WELL. IV ACCESS MIDLINE TO RIGHT UA GAUGE 20, PATENT, INTACT AND RUNNING NS AT 75ML/HR. SAFETY MEASURES MAINTAINED: BED LOCKED AND IN LOWEST POSITION, SIDE RAILS UP X 2 CALL LIGHT WITHIN REACH. WILL ENDORSE PT TO AM SHIFT NURSE FOR YVES.
--- NOTE | 2022-11-03 07:19 | NUR ---
MS RN OPENING NOTES RECEIVED PATIENT SLEEPING IN BED, A/Ox2. ON ROOM AIR NO S/S OF RESPIRATORY DISTRESS. IV ACCESS KANDACE MIDLINE RUNNING D5 1/2 NS @75 ML/HR. INTACT AND PATENT. INCONTINENT USES DIAPER. SKIN ISSUES: G-TUBE STOMA CLOSED, BLE SCABS. SAFETY MEASURES IN PLACE: BED LOCKED AND IN LOWEST POSITION, HOB ELEVATED, CALL LIGHT WITHIN REACH, SIDE RAILS UPx3. WILL CONTINUE TO MONITOR.
[2022-11-03 08:19] VITALS: BP 119/45
[2022-11-03] MEDS: PANTOPRAZOLE 40 MG VIAL IV SCH (09:10)
[2022-11-03] MEDS: HEPARIN SODIUM, PORCINE 5000 UNITS/1 ML VIAL SQ SCH ×2 (09:21→21:40)
[2022-11-03 09:56] LABS: BASOPHILS % (AUTO) 0.7 % (0.0-2.0); HEMATOCRIT 44 % (39-51); HEMOGLOBIN 14.3 g/dL (13.5-17.5); LYMPHOCYTES # (AUTO) 3.4 K/uL (0.8-4.8); LYMPHOCYTES % (AUTO) 49.6 % (20.0-44.0); MEAN CORPUSCULAR HGB CONC 33 g/dl (31.0-36.0); MEAN CORPUSCULAR VOLUME 98 fL (80-96); MONOCYTES # (AUTO) 0.5 K/uL (0.1-1.30); MONOCYTES % (AUTO) 7.7 % (2.0-12.0); NEUTROPHILS # (AUTO) 2.8 K/uL (1.8-8.9); PLATELET COUNT (AUTO) 210 K/uL (150-450); RED BLOOD CELL COUNT(AUTO) 4.48 MIL/uL (4.5-6.0); WHITE BLOOD COUNT (AUTO) 6.9 K/uL (4.3-11.0)
[2022-11-03 10:11] LABS: CALCIUM, SERUM 9.1 mg/dL (8.5-10.1); MAGNESIUM 2.1 mg/dL (1.8-2.4); PHOSPHORUS 3.1 mg/dL (2.5-4.9); POTASSIUM 3.9 mmol/L (3.5-5.1)
[2022-11-03] MEDS: IV D5/0.45 NACL 1,000 ML IV PRN (11:28)
[2022-11-03] MEDS ORDERED: DEXTROSE 50%-WATER 50 ML DISP.SYRIN IV PRN (14:30)
[2022-11-03] MEDS ORDERED: BISACODYL SUPP (10 MG) 10 MG/SUPP.RECT SUPP.RECT RC PRN (15:30)
[2022-11-03 15:39] VITALS: BP 126/66
[2022-11-03] MEDS: BLOOD SUGAR DIAGNOSTIC 1 EACH STRIP IN SCH (17:18)
--- NOTE | 2022-11-03 18:44 | NUR ---
MS RN CLOSING NOTES PATIENT SLEEPING IN BED, A/Ox2. STABLE ON ROOM AIR NO S/S OF RESPIRATORY DISTRESS. IV ACCESS KANDACE MIDLINE RUNNING D5 1/2 NS @75 ML/HR. INTACT AND PATENT. INCONTINENT USES DIAPER. SKIN ISSUES: G-TUBE STOMA CLOSED, BLE SCABS. SAFETY MEASURES MAINTAINED: BED LOCKED AND IN LOWEST POSITION, HOB ELEVATED, CALL LIGHT WITHIN REACH, SIDE RAILS UPx3. WILL ENDORSE TO NEXT SHIFT ANY YVES.
--- NOTE | 2022-11-03 19:00 | NUR ---
MS RN OPENING NOTES PATIENT IS SLEEPING IN BED, EASILY BEING AROUSED. HE IS ALERT AND ORIENTED, A/Ox2. PT IS ON ROOM AIR, TOLERATED WELL. NO S/S OF DISTRESS OR SOB. IV ACCESS IS AT HIS R UA, MIDLINE, #18G, INFUSING D5 1/2 NS @75 ML/HR. IV SITE IS INTACT AND PATENT. PT IS ON NPO DUE TO G-TUBE REPLACEMENT IS PENDING. G-TUBE STOMA IS CLOSED, AND THE SKIN IS DRY. NO DRAINAGE; OPEN TO AIR. NO S/S OF INFECTION AT THE STOMA SITE. SAFETY MEASURES ARE IN PLACED: BED IS LOCKED AND IN LOWEST POSITION, HOB ELEVATED, CALL LIGHT WITHIN REACH, SIDE RAILS UP X 2; BED ALARM IS SET. WILL CONTINUE MONITORING THE PT AND PROVIDE THE CARE PT NEEDS.
[2022-11-03 20:00] VITALS: BP 108/59
[2022-11-04] MEDS: BLOOD SUGAR DIAGNOSTIC 1 EACH STRIP IN SCH ×4 (00:24→17:42)
[2022-11-04] MEDS: IV D5/0.45 NACL 1,000 ML IV PRN (00:28)
[2022-11-04] MEDS: LEVETIRACETAM (500MG) 1,000 MG in IV NS 0.9% 100 ML IV SCH ×2 (04:37→20:27)
[2022-11-04 06:22] LABS: EOSINOPHILS % (AUTO) 1.6 % (0.0-6.0); HEMATOCRIT 40 % (39-51); LYMPHOCYTES # (AUTO) 2.9 K/uL (0.8-4.8); LYMPHOCYTES % (AUTO) 57.6 % (20.0-44.0); MEAN CORPUSCULAR HGB CONC 33 g/dl (31.0-36.0); MEAN CORPUSCULAR VOLUME 96 fL (80-96); MONOCYTES # (AUTO) 0.4 K/uL (0.1-1.30); MONOCYTES % (AUTO) 7.5 % (2.0-12.0); NEUTROPHILS # (AUTO) 1.6 K/uL (1.8-8.9); NEUTROPHILS % (AUTO) 32.3 % (43.0-81.0); PLATELET COUNT (AUTO) 199 K/uL (150-450)
--- NOTE | 2022-11-04 06:49 | NUR ---
MS RN CLOSING NOTES PATIENT IS SLEEPING IN BED, EASILY BEING AROUSED. HE IS ALERT AND ORIENTED, A/Ox2. PT IS ON ROOM AIR, TOLERATED WELL. NO S/S OF DISTRESS OR SOB. IV ACCESS IS AT HIS R UA, MIDLINE, #18G, INFUSING D5 1/2 NS @75 ML/HR. IV SITE IS INTACT AND PATENT. PT IS ON NPO DUE TO G-TUBE REPLACEMENT IS PENDING. G-TUBE STOMA IS CLOSED, AND THE SKIN IS DRY. NO DRAINAGE; OPEN TO AIR. NO S/S OF INFECTION AT THE STOMA SITE. WOUND PICTURE WAS TAKEN AND PUT IN PT'S CHART. SAFETY MEASURES ARE IN PLACED: BED IS LOCKED AND IN LOWEST POSITION, HOB ELEVATED, CALL LIGHT WITHIN REACH, SIDE RAILS UP X 2; BED ALARM IS SET. WILL ENDORSE NEXT SHIFT NURSE FOR CONTINUING PT CARE.
[2022-11-04 07:00] VITALS: BP 129/65
[2022-11-04 07:05] LABS: CALCIUM, SERUM 8.6 mg/dL (8.5-10.1); MAGNESIUM 1.8 mg/dL (1.8-2.4); PHOSPHORUS 2.8 mg/dL (2.5-4.9); POTASSIUM 3.4 mmol/L (3.5-5.1)
--- NOTE | 2022-11-04 07:30 | NUR ---
RN OPENING NOTE- PATIENT SLEEPING EASILY AWAKENED, HE IS A/Ox2. PT IS ON ROOM AIR, NO S/S OF DISTRESS OR SOB. IV ACCESS IS AT HIS R UA, MIDLINE, #18G, INFUSING D5 1/2 NS @75 ML/HR. IV SITE IS INTACT AND PATENT. PT IS ON NPO DUE TO G-TUBE REPLACEMENT /PENDING. G-TUBE STOMA IS CLOSED, AND THE SKIN IS DRY. NO DRAINAGE; OPEN TO AIR. NO S/S OF INFECTION AT THE STOMA SITE. SAFETY MEASURES ARE IN PLACED: BED IS LOCKED AND IN LOWEST POSITION, HOB ELEVATED, CALL LIGHT WITHIN REACH, SIDE RAILS UP X 2; BED ALARM IS SET. WILL MONITOR / ASSIST
--- NOTE | 2022-11-04 07:31 | NUR ---
RN NOTE- SEIZURE HX NOTED. PADDED SIDERAILS APPLIED AT THIS TIME. MONITOR FOR SZ ACTIVITY
[2022-11-04] MEDS: HEPARIN SODIUM, PORCINE 5000 UNITS/1 ML VIAL SQ SCH ×2 (09:12→21:00)
[2022-11-04] MEDS: PANTOPRAZOLE 40 MG VIAL IV SCH (09:18)
[2022-11-04] MEDS: INSULIN REGULAR, HUMAN 100 UNIT/ML 3 ML VIAL SQ PRN ×2 (11:45→17:43)
[2022-11-04 16:27] VITALS: BP 115/56
--- NOTE | 2022-11-04 18:42 | NUR ---
RN CLOSING NOTE- PATIENT UNCHANGED, HE IS A/Ox2. PT IS ON ROOM AIR, NO S/S OF DISTRESS OR SOB. IV ACCESS IS AT HIS R UA, MIDLINE, #18G, INFUSING D5 1/2 NS @75 ML/HR. IV SITE IS INTACT AND PATENT. PT IS ON NPO DUE TO G-TUBE REPLACEMENT /PENDING. G-TUBE STOMA IS CLOSED, AND THE SKIN IS DRY. NO DRAINAGE; OPEN TO AIR. NO S/S OF INFECTION AT THE STOMA SITE. FOR PEG PLACEMENT IN MORNING. SAFETY MEASURES ARE IN PLACED: BED IS LOCKED AND IN LOWEST POSITION, HOB ELEVATED, CALL LIGHT WITHIN REACH, SIDE RAILS UP X 2; BED ALARM IS SET. WILL MONITOR / ASSIST
--- NOTE | 2022-11-04 19:29 | NUR ---
RN OPENING NOTE PATIENT AWAKE IN BED. A/OX2. NO S/S OF DISTRESS, BREATHING WITHOUT DIFFICULTY ON ROOM AIR. KANDACE MIDLINE #18 INTACT AND PATENT W/ D5-1/2NS 75ML/HR. SAFETY MEASURES IN PLACE: BED LOCKED AND AT LOWEST POSITION, RAILS UP X2, CALL TORRES WITHIN REACH. WILL CONTINUE TO MONITOR PATIENT.
[2022-11-04 20:00] VITALS: BP 109/68
[2022-11-05] MEDS: BLOOD SUGAR DIAGNOSTIC 1 EACH STRIP IN SCH ×4 (00:02→17:59)
[2022-11-05] MEDS: INSULIN REGULAR, HUMAN 100 UNIT/ML 3 ML VIAL SQ PRN ×3 (00:03→18:29)
[2022-11-05] MEDS: IV D5/0.45 NACL 1,000 ML IV PRN ×2 (03:32→17:48)
--- NOTE | 2022-11-05 06:46 | NUR ---
RN CLOSING NOTE PATIENT ASLEEP IN BED. A/OX2 (NAME AND SITUATION). NO S/S OF DISTRESS, BREATHING WITHOUT DIFFICULTY ON ROOM AIR. KANDACE MIDLINE #18 INTACT AND PATENT W/ D5-1/2NS 75ML/HR. SAFETY MEASURES IN PLACE: BED LOCKED AND AT LOWEST POSITION, RAILS UP X2, CALL TORRES WITHIN REACH. WILL ENDORSE TO NEXT SHIFT FOR YVES.
[2022-11-05 07:30] VITALS: BP 112/65
--- NOTE | 2022-11-05 07:40 | NUR ---
RN OPENING NOTE PATIENT AWAKE IN BED. A/OX2. NO S/S OF DISTRESS, BREATHING EVEN AND UNLABORED ON ROOM AIR. PATIENT HAS IV ACCESS KANDACE MIDLINE #18 INTACT AND INFUSING WELL WITH D5 1/2 NS AT 75ML/HR. SAFETY MEASURES IN PLACE: BED LOCKED AND AT LOWEST POSITION, RAILS UP X2, CALL TORRES WITHIN REACH. WILL CONTINUE TO MONITOR PATIENT.
[2022-11-05] MEDS: HEPARIN SODIUM, PORCINE 5000 UNITS/1 ML VIAL SQ SCH ×2 (09:00→21:00)
[2022-11-05] MEDS: LEVETIRACETAM (500MG) 1,000 MG in IV NS 0.9% 100 ML IV SCH (09:10)
[2022-11-05] MEDS: PANTOPRAZOLE 40 MG VIAL IV SCH (10:26)
[2022-11-05] MEDS: MUPIROCIN OINT 2% 22 GM TUBE NS SCH ×2 (10:27→20:52)
--- NOTE | 2022-11-05 11:35 | NUR ---
RN NOTE PATIENT IS NOT IN ROOM. PATIENT WAS TAKEN BY OR NURSE FOR SURGERY
--- NOTE | 2022-11-05 13:20 | NUR ---
RN NOTE PATIENT IS BACK FROM OR. VITAL SIGNS STABLE, TOLERATED PROCEDURE WELL. DRESSING IS DRY, INTACT. PATIENT IS IN BED RESTING COMFORTABLY. WILL CONTINUE TO MONITOR
[2022-11-05 13:30] VITALS: BP 116/66
[2022-11-05] MEDS ORDERED: GLUCERNA 1.2 1,000 ML BOTTLE NG PRN (15:30)
[2022-11-05] MEDS ORDERED: NA PHOS,M-B/NA PHOS,DI-BA 1 EA ENEMA RC PRN (15:30)
[2022-11-05] MEDS ORDERED: MAGNESIUM HYDROXIDE 30 ML UDC GT PRN (15:30)
[2022-11-05 16:00] VITALS: BP 112/61
--- NOTE | 2022-11-05 18:31 | NUR ---
RN CLOSING NOTE PATIENT AWAKE IN BED RESTING, A/O X 2. NO S/S OF PAIN NOTED AT THIS TIME. ON ROOM AIR, BREATHING EVEN AND UNLABORED, NO DISTRESS OR SHORTNESS OF BREATH NOTED. IV ACCESS KANDACE MIDLINE #18G, INTACT PATENT AND FLUSHING WELL, RUNNING D5 1/2 NS @ 75 ML/HR. PATIENT WITH G-TUBE, FLUSHING WELL, FEEDING TO START IN THE AM. PER DOCTOR ORDER. PATIENT HAD A G-TUBE INSERTION TODAY, TOLERATED PROCEDURE WELL. SCD IN PLACE ON BILATERAL LOWER EXTREMITIES. PATIENT WAS TURNED AND REPOSITION PER PROTOCOL. FALL AND SAFETY MEASURES IN PLACE, BED ALARM ON, BED IN LOW AND LOCK POSITION, CALL LIGHT AND TABLE WITHIN EASY REACH, SIDE RAIL UP X2. ALL NEEDS ATTENDED AND ANTICIPATED. WILL ENDORSE TO PULLBOAT ENGINEER NURSE.
--- NOTE | 2022-11-05 19:27 | NUR ---
MS RN OPENING NOTE PATIENT AWAKE IN BED RESTING, A/O X 2-3; STABLE ON ROOM AIR, BREATHING EVENLY AND NO S/S OF DISTRESS OR SHORTNESS OF BREATH NOTED; WITH MIDLINE ACCESS AT KANDACE #18G, INTACT PATENT AND FLUSHING WELL, RUNNING WITH D5 1/2 NS AT 75 ML/HR; PATIENT HAD A G-TUBE INSERTION TODAY, TOLERATED PROCEDURE WELL; SCD IN PLACE ON BILATERAL LOWER EXTREMITIES; SAFETY MEASURES IN PLACE, BED ALARM ON, BED LOCKED IN LOW POSITION, CALL LIGHT AND TABLE WITHIN EASY REACH, SIDE RAIL UP X2; WILL CONTINUE TO MONITOR THROUGHOUT SHIFT
[2022-11-05 20:00] VITALS: BP 114/55
[2022-11-05] MEDS: LEVETIRACETAM SOL (5 ML) 100 MG/ML UDC GT SCH (20:52)
[2022-11-05] MEDS ORDERED: TRAZODONE 50 MG TABLET GT SCH (22:00)
[2022-11-05] MEDS ORDERED: ATORVASTATIN 40 MG TABLET GT SCH (22:00)
[2022-11-06] MEDS: BLOOD SUGAR DIAGNOSTIC 1 EACH STRIP IN SCH ×3 (00:06→12:05)
--- NOTE | 2022-11-06 00:30 | NUR ---
MS RN NOTE PREPARED GLUCERNA 1.2 TO START TUBE FEEDING; CHARGE NURSE INFORMED ME TO START TUBE FEEDING LATER THIS MORNING
[2022-11-06] MEDS: IV D5/0.45 NACL 1,000 ML IV PRN (05:52)
[2022-11-06] MEDS ORDERED: MODAFINIL 100 MG TABLET GT SCH (06:30)
--- NOTE | 2022-11-06 07:20 | NUR ---
MS RN CLOSING NOTE PATIENT RESTING IN BED, A/O X 2-3; STABLE ON ROOM AIR, BREATHING EVENLY AND NO S/S OF DISTRESS OR SHORTNESS OF BREATH NOTED; WITH MIDLINE ACCESS AT KANDACE #18G, INTACT, PATENT AND FLUSHING WELL RUNNING WITH D5 1/2 NS AT 75 ML/HR; PATIENT HAD A G-TUBE INSERTION TODAY, STARTED TUBE FEEDING GLUCERNA 1.2 AT 30ML/HR, TOLERATING WELL; SCD IN PLACE ON BILATERAL LOWER EXTREMITIES; ADMINISTERED MEDICATIONS PRESCRIBED; PATIENT'S NEEDS ATTENDED; SAFETY MEASURES IN PLACE, BED ALARM ON, BED LOCKED IN LOW POSITION, CALL LIGHT AND TABLE WITHIN EASY REACH, SIDE RAIL UP X2; ENDORSED TO AM SHIFT NURSE FOR YVES.
--- NOTE | 2022-11-06 07:30 | NUR ---
MS RN OPENING NOTE PATIENT AWAKE IN BED. A/OX2. NO S/S OF DISTRESS, BREATHING EVEN AND UNLABORED ON ROOM AIR. PATIENT HAS IV ACCESS KANDACE MIDLINE #18 INTACT AND INFUSING WELL WITH D5 1/2 NS AT 75ML/HR. PATIENT HAS G-TUBE WITH GLUCERNA 1.2L RUNNING AT 30 ML/HR. SAFETY MEASURES IN PLACE: BED LOCKED AND AT LOWEST POSITION, RAILS UP X2, CALL TORRES WITHIN REACH. WILL CONTINUE TO MONITOR PATIENT.
[2022-11-06 08:00] VITALS: BP 113/70
[2022-11-06] MEDS ORDERED: FOLIC ACID 1 MG TABLET GT SCH (09:00)
[2022-11-06] MEDS ORDERED: ASPIRIN 81 MG TAB.CHEW GT SCH (09:00)
[2022-11-06] MEDS ORDERED: CALCITRIOL 0.25 MCG CAPSULE GT SCH (09:00)
[2022-11-06] MEDS ORDERED: MULTIVIT W/MINERALS 1 TAB TABLET GT SCH (09:00)
[2022-11-06] MEDS ORDERED: ASCORBIC ACID 500 MG TABLET GT SCH (09:00)
[2022-11-06] MEDS ORDERED: PANTOPRAZOLE 40 MG/PACK PACK NG SCH (09:00)
[2022-11-06] MEDS ORDERED: ESCITALOPRAM OXALATE (10 MG) 10 MG TABLET GT SCH (09:00)
[2022-11-06] MEDS ORDERED: AMLODIPINE BESYLATE 10 MG TABLET GT SCH (09:00)
[2022-11-06] MEDS ORDERED: DOCUSATE SODIUM LIQ 100 MG/10 ML UDC GT SCH (09:00)
[2022-11-06 09:28] VITALS: BP 113/70
[2022-11-06] MEDS: HEPARIN SODIUM, PORCINE 5000 UNITS/1 ML VIAL SQ SCH (09:29)
[2022-11-06] MEDS: LEVETIRACETAM SOL (5 ML) 100 MG/ML UDC GT SCH (09:37)
[2022-11-06] MEDS: MUPIROCIN OINT 2% 22 GM TUBE NS SCH (09:37)
[2022-11-06] MEDS: INSULIN REGULAR, HUMAN 100 UNIT/ML 3 ML VIAL SQ PRN (12:12)
--- NOTE | 2022-11-06 15:41 | NUR ---
MS DRYWALL HANGER FRAMER NOTE PATIENT DISCHARGE IN STABLE MEDICAL CONDITION. A/O X2. V/S TAKEN, STABLE AND RECORDED. NO IV ACCESS. NAME ARM BAND REMOVED. NO ACTIVE BLEEDING NOTED. PATIENT REFUSED SKIN ASSESSMENT AND PICTURES. ALL BELONGINGS CHECKED AND BELONGINGS LIST SIGNED. HEALTH TEACHING AND DISCHARGE INSTRUCTTIONS GIVEN TO PATIENT AND ALARM MECHANISM ADJUSTER HIRA AT SNF AND VERBALIZED UNDERSTANDING. INSTRUCTED PATIENT AND SNF-ALARM MECHANISM ADJUSTER IN CASE OF EMERGENCY TO CALL 911 OR GO TO THE NEAREST ER. REPORT GIVEN TO NURSE HIRA-SHIKHA AT [facility]. PATIENT LEFT UNIT VIA GURNEY WITH NO SIGNS OF DISTRESS, ACCOMPANIED BY EMT TO THE LOBBY. CHARGE NURSE AWARE OF DISCHARGED.
== END 2022-11-06 15:50 | DRG 393 ==
LOC: ER 13:28 → MED 17:14
PROVIDERS: ADMIT Nurse Practitioner Family; ATTEND Internal Medicine
PROC: 0DH63UZ Insertion of Feeding Device into Stomach, Percutaneous Approach (ICD-10-PCS; principal; 2022-11-05)
DX: K94.29 Other complications of gastrostomy (principal); G82.50 Quadriplegia, unspecified; G93.41 Metabolic encephalopathy; E44.0 Moderate protein-calorie malnutrition; E11.9 Type 2 diabetes mellitus without complications; F20.9 Schizophrenia, unspecified; G40.909 Epilepsy, unspecified, not intractable, without status epilepticus; F03.90 Unspecified dementia, unspecified severity, without behavioral disturbance, psychotic disturbance, mood disturbance, and anxiety; R13.10 Dysphagia, unspecified; K44.9 Diaphragmatic hernia without obstruction or gangrene; E88.09 Other disorders of plasma-protein metabolism, not elsewhere classified; I10 Essential (primary) hypertension; Z79.51 Long term (current) use of inhaled steroids; Z79.82 Long term (current) use of aspirin; Z87.820 Personal history of traumatic brain injury; Z79.899 Other long term (current) drug therapy; Z20.822 Contact with and (suspected) exposure to COVID-19
CPT/HCPCS: 36415; 43760; 71045-TC; 80048-TC; 80076-TC; 82962-TC; 83690-TC; 83735-TC; 84100-TC; 85025-TC; 87081-TC; A4223; C9113; C9803; G0378; J1644; J1815; J1953; J2704; J3490; J7030; J7050

== ENCOUNTER 2023-02-18 05:11 | Emergency (ER) | payer MEDICARE, OTHER ==
[~2023-02-18] VITALS: Ht 170.2 cm; Wt 69.4 kg
[~2023-02-18 05:11] MED LIST changes: +ACET-2605 GT; +ACET-868 PO; +BISA10SU11 RC; -CRAN3875 GT; -FERR325T23 GT; -FLUN25SP; -FLUT12AE5 IH; -GUAI1TBM19 PO; +INSU100V3 SQ; +MAGN400O6 GT; +NA P133E RC; +SODI1TAB66 GT
[2023-02-18] MEDS ORDERED: LEVETIRACETAM (500MG) 500 MG/5 ML VIAL IV ONE (06:16)
[2023-02-18 06:22] LABS: BASOPHILS # (AUTO) 0.1 K/uL (0.0-0.2); BASOPHILS % (AUTO) 0.6 % (0.0-2.0); EOSINOPHILS % (AUTO) 0.1 % (0.0-6.0); HEMATOCRIT 43 % (39-51); HEMOGLOBIN 14.4 g/dL (13.5-17.5); MEAN CORPUSCULAR HEMOGLOBIN 33 PG (26.0-33.0); MEAN CORPUSCULAR HGB CONC 34 g/dl (31.0-36.0); MEAN CORPUSCULAR VOLUME 96 fL (80-96); MONOCYTES # (AUTO) 0.4 K/uL (0.1-1.30); MONOCYTES % (AUTO) 4.8 % (2.0-12.0); NEUTROPHILS # (AUTO) 7.6 K/uL (1.8-8.9); NEUTROPHILS % (AUTO) 83.5 % (43.0-81.0); PLATELET COUNT (AUTO) 178 K/uL (150-450); RED BLOOD CELL COUNT(AUTO) 4.42 MIL/uL (4.5-6.0); RED CELL DISTRIBUTION WIDTH 13.7 % (11.5-15.0); WHITE BLOOD COUNT (AUTO) 9.1 K/uL (4.3-11.0)
[2023-02-18] MEDS ORDERED: LEVETIRACETAM (500MG) 1,000 MG in IV NS 0.9% 100 ML IV SCH (06:30)
[2023-02-18 06:57] LABS: ALBUMIN 2.6 g/dL (3.4-5.0); BILIRUBIN,DIRECT 0.1 mg/dL (0.0-0.2); BILIRUBIN,TOTAL 0.3 mg/dL (0.2-1.0); CALCIUM, SERUM 9.5 mg/dL (8.5-10.1); CREATININE 1.3 mg/dL (0.6-1.3); POTASSIUM 3.5 mmol/L (3.5-5.1); TOTAL PROTEIN, SERUM 7.9 g/dL (6.4-8.2)
[2023-02-18] MEDS ORDERED: IV NS 0.9% 1,000 ML BAG IV ONE (07:30)
[2023-02-18 09:11] VITALS: BP 122/77; TEMP 98.1; O2SAT 100
== END 2023-02-18 09:12 ==
LOC: ER 05:13
DX: G40.909 Epilepsy, unspecified, not intractable, without status epilepticus (principal); E86.0 Dehydration; I10 Essential (primary) hypertension; F03.90 Unspecified dementia, unspecified severity, without behavioral disturbance, psychotic disturbance, mood disturbance, and anxiety; E11.9 Type 2 diabetes mellitus without complications; F20.9 Schizophrenia, unspecified; Z79.4 Long term (current) use of insulin; Z79.899 Other long term (current) drug therapy
CPT/HCPCS: 99284; 96365; 96361; 85025; 80048; 80076; 36415; 82962; J7030 ×3; J1953

== ENCOUNTER 2023-03-30 09:23 | Emergency (ER) | payer MEDICARE, OTHER ==
[~2023-03-30] VITALS: Ht 157.5 cm; Wt 54.4 kg
[2023-03-30 10:24] LABS: CALCIUM, SERUM 9.7 mg/dL (8.5-10.1); CREATININE 1.2 mg/dL (0.6-1.3); POTASSIUM 3.6 mmol/L (3.5-5.1)
[2023-03-30 10:26] LABS: BASOPHILS % (AUTO) 0.5 % (0.0-2.0); EOSINOPHILS # (AUTO) 0.1 K/uL (0.0-0.7); EOSINOPHILS % (AUTO) 0.7 % (0.0-6.0); HEMATOCRIT 42 % (39-51); HEMOGLOBIN 14.6 g/dL (13.5-17.5); LYMPHOCYTES # (AUTO) 2.4 K/uL (0.8-4.8); LYMPHOCYTES % (AUTO) 32.5 % (20.0-44.0); MEAN CORPUSCULAR HEMOGLOBIN 33 PG (26.0-33.0); MEAN CORPUSCULAR HGB CONC 34 g/dl (31.0-36.0); MEAN CORPUSCULAR VOLUME 95 fL (80-96); MONOCYTES # (AUTO) 0.5 K/uL (0.1-1.30); MONOCYTES % (AUTO) 6.5 % (2.0-12.0); NEUTROPHILS # (AUTO) 4.5 K/uL (1.8-8.9); NEUTROPHILS % (AUTO) 59.8 % (43.0-81.0); PLATELET COUNT (AUTO) 275 K/uL (150-450); RED BLOOD CELL COUNT(AUTO) 4.48 MIL/uL (4.5-6.0); RED CELL DISTRIBUTION WIDTH 13.6 % (11.5-15.0); WHITE BLOOD COUNT (AUTO) 7.5 K/uL (4.3-11.0)
[2023-03-30] MEDS ORDERED: LEVETIRACETAM (500MG) 750 MG in IV NS 0.9% 100 ML IV SCH (10:30)
[2023-03-30 15:46] VITALS: BP 138/87; TEMP 98; O2SAT 97
== END 2023-03-30 15:47 ==
LOC: ER 09:29
DX: G40.909 Epilepsy, unspecified, not intractable, without status epilepticus (principal); F03.90 Unspecified dementia, unspecified severity, without behavioral disturbance, psychotic disturbance, mood disturbance, and anxiety; I10 Essential (primary) hypertension; E11.9 Type 2 diabetes mellitus without complications; F20.9 Schizophrenia, unspecified; Z79.4 Long term (current) use of insulin; Z79.899 Other long term (current) drug therapy
CPT/HCPCS: 99285; 96365; 70450; 85025; 80048; 36415; 82962; J7030; A4223; J1953